=== PATIENT | female | born 1980 | race Caucasian/White ===

== ENCOUNTER 2021-11-10 20:58 | Emergency (ER) | payer SELFPAY ==
[~2021-11-10] VITALS: Ht 180 cm; Wt 73.0 kg
--- NOTE | 2021-11-10 21:21 | ED General ---
General Stated Complaint: BACK PAIN / VOMITING Source of Information: Patient Exam Limitations: No Limitations (DELTA MCGEE APRN) History of Present Illness Date Seen by Provider: Nov 10, 2021 Time Seen by Provider: 21:20 Initial Comments To ER by private vehicle from home with reports of severe low back pain, urinary frequency lower abdominal pain vomiting. She was seen by [facility] yesterday and diagnosed with urinary tract infection and given diclofenac and Macrobid. She has been vomiting. No fever no chills.She does report anxiety as well. Timing/Duration: 1-2 Days Severity: Moderate Associated Systoms: Nausea/Vomiting, Weakness (DELTA MCGEE APRN) Allergies and Home Medications Allergies Coded Allergies: morphine (Verified Allergy, Unknown, 11/10/21) Patient Home Medication List Home Medication List Reviewed: Yes (DELTA MCGEE APRN) Review of Systems Review of Systems Constitutional: see HPI EENTM: see HPI Respiratory: no symptoms reported Cardiovascular: no symptoms reported Genitourinary: no symptoms reported Musculoskeletal: no symptoms reported Skin: no symptoms reported Psychiatric/Neurological: No Symptoms Reported (DELTA MCGEE APRN) Physical Exam Vital Signs Vital Signs - First Documented 11/10/21 21:09 Temp 36.4 Pulse 87 Resp 20 B/P (MAP) 125/101 (109) Pulse Ox 100 O2 Delivery Room Air (YAMILE STACK DO) Vital Signs Capillary Refill : (DELTA MCGEE APRN) Height, Weight, BMI Height: '" Weight: lbs. oz. kg; BMI Method: General Appearance: No Apparent Distress, WD/WN, Anxious, Thin Eyes: Bilateral Eye Normal Inspection, Bilateral Eye PERRL, Bilateral Eye EOMI HEENT: PERRL/EOMI, TMs Normal Neck: Full Range of Motion, Normal Inspection Respiratory: No Accessory Muscle Use, No Respiratory Distress Cardiovascular: Normal Peripheral Pulses, Tachycardia Gastrointestinal: Normal Bowel Sounds, Non Tender, Soft, Other (abdomen is flat soft nontender. ) Neurologic/Psychiatric: Alert, Oriented x3 Skin: Normal Color, Warm/Dry (DELTA MCGEE APRN) Progress/Results/Core Measures Suspected Sepsis SIRS Temperature: Pulse: Respiratory Rate: Laboratory Tests 11/10/21 21:15: White Blood Count 10.9 Blood Pressure / Mean: Laboratory Tests 11/10/21 21:15: Creatinine 1.05, Platelet Count 287, Total Bilirubin 0.2 (DELTA MCGEE APRN) Results/Orders Lab Results Laboratory Tests Test 11/10/21 21:15 11/10/21 21:20 Range/Units White Blood Count 10.9 4.3-11.0 10^3/uL Red Blood Count 4.77 3.80-5.11 10^6/uL Hemoglobin 10.8 L 11.5-16.0 g/dL Hematocrit 38 35-52 % Mean Corpuscular Volume 79 L 80-99 fL Mean Corpuscular Hemoglobin 23 L 25-34 pg Mean Corpuscular Hemoglobin Concent 29 L 32-36 g/dL Red Cell Distribution Width 14.7 H 10.0-14.5 % Platelet Count 287 130-400 10^3/uL Mean Platelet Volume 9.3 9.0-12.2 fL Immature Granulocyte % (Auto) 1 % Neutrophils (%) (Auto) 89 H 42-75 % Lymphocytes (%) (Auto) 5 L 12-44 % Monocytes (%) (Auto) 5 0-12 % Eosinophils (%) (Auto) 1 0-10 % Basophils (%) (Auto) 0 0-10 % Neutrophils # (Auto) 9.7 H 1.8-7.8 10^3/uL Lymphocytes # (Auto) 0.5 L 1.0-4.0 10^3/uL Monocytes # (Auto) 0.5 0.0-1.0 10^3/uL Eosinophils # (Auto) 0.1 0.0-0.3 10^3/uL Basophils # (Auto) 0.0 0.0-0.1 10^3/uL Immature Granulocyte # (Auto) 0.1 0.0-0.1 10^3/uL Neutrophils % (Manual) 84 % Lymphocytes % (Manual) 2 % Monocytes % (Manual) 1 % Basophils % (Manual) 1 % Band Neutrophils 12 % Hypochromasia SLIGHT Poikilocytosis SLIGHT Anisocytosis SLIGHT Microcytosis SLIGHT Elliptocytes SLIGHT Schistocytes SLIGHT Sodium Level 138 135-145 MMOL/L Potassium Level 5.1 H 3.6-5.0 MMOL/L Chloride Level 105 98-107 MMOL/L Carbon Dioxide Level 19 L 21-32 MMOL/L Anion Gap 14 5-14 MMOL/L Blood Urea Nitrogen 19 H 7-18 MG/DL Creatinine 1.05 0.60-1.30 MG/DL Estimat Glomerular Filtration Rate 69 BUN/Creatinine Ratio 18 Glucose Level 130 H 70-105 MG/DL Calcium Level 8.3 L 8.5-10.1 MG/DL Corrected Calcium 8.6 8.5-10.1 MG/DL Total Bilirubin 0.2 0.1-1.0 MG/DL Aspartate Amino Transf (AST/SGOT) 19 5-34 U/L Alanine Aminotransferase (ALT/SGPT) 22 0-55 U/L Alkaline Phosphatase 72 40-136 U/L Total Protein 7.1 6.4-8.2 GM/DL Albumin 3.6 3.2-4.5 GM/DL Serum Test, Qualitative NEGATIVE NEGATIVE Urine Color YELLOW Urine Clarity CLEAR Urine pH 7.0 5-9 Urine Specific [place] 1.015 L 1.016-1.022 Urine Protein NEGATIVE NEGATIVE Urine Glucose (UA) NEGATIVE NEGATIVE Urine Ketones TRACE H NEGATIVE Urine Nitrite NEGATIVE NEGATIVE Urine Bilirubin 1+ H NEGATIVE Urine Urobilinogen 1.0 < = 1.0 MG/DL Urine Leukocyte Esterase NEGATIVE NEGATIVE Urine RBC (Auto) NEGATIVE NEGATIVE Urine RBC NONE /HPF Urine WBC NONE /HPF Urine Squamous Epithelial Cells 25-50 H /HPF Urine Crystals NONE /LPF Urine Bacteria FEW H /HPF Urine Casts NONE /LPF Urine Mucus NEGATIVE /LPF Urine Culture Indicated NO Urine Opiates Screen NEGATIVE NEGATIVE Urine Oxycodone Screen NEGATIVE NEGATIVE Urine Methadone Screen NEGATIVE NEGATIVE Urine Propoxyphene Screen NEGATIVE NEGATIVE Urine Barbiturates Screen NEGATIVE NEGATIVE Ur Tricyclic Antidepressants Screen NEGATIVE NEGATIVE Urine Phencyclidine Screen NEGATIVE NEGATIVE Urine Amphetamines Screen POSITIVE H NEGATIVE Urine Methamphetamines Screen POSITIVE H NEGATIVE Urine Benzodiazepines Screen NEGATIVE NEGATIVE Urine Cocaine Screen NEGATIVE NEGATIVE Urine Cannabinoids Screen NEGATIVE NEGATIVE (YAMILE STACK DO) Medications Given in ED Current Medications Medications Dose Ordered Sig/George Route Start Time Stop Time Status Last Admin Dose Admin Ketorolac Tromethamine 15 mg ONCE ONCE IVP 11/10/21 21:30 11/10/21 21:31 DC 11/10/21 21:27 15 MG Lorazepam 1 mg ONCE ONCE IVP 11/10/21 22:00 11/10/21 22:01 DC 11/10/21 22:05 1 MG Ondansetron HCl 8 mg ONCE ONCE IVP 11/10/21 21:30 1/23/22 21:31 DC 11/10/21 21:26 8 MG (YAMILE STACK DO) Vital Signs/I&O 11/10/21 11/10/21 21:09 22:29 Temp 36.4 Pulse 87 82 Resp 20 16 B/P (MAP) 125/101 (109) 116/80 Pulse Ox 100 100 O2 Delivery Room Air Room Air (YAMILE STACK DO) Vital Signs/I&O Capillary Refill : (DELTA MCGEE APRN) Departure Impression Primary Impression: Acute low back pain Additional Impression: Anxiety Disposition: 01 HOME, SELF-CARE Condition: Stable Departure-Patient Inst. Decision time for Depature: 21:53 (DELTA MCGEE APRN) Referrals: NO,LOCAL PHYSICIAN (PCP/Family) Primary Care Physician Patient Instructions: Low Back Pain ED ATTENDING PHYSICIAN NOTE: I WAS PHYSICALLY PRESENT ER PHYSICIAN WHEN THIS PATIENT WAS IN ER, BUT I WAS NOT INVOLVED IN ANY DECISION MAKING OR ANY CARE OF THIS PATIENT. (YAMILE STACK DO) DELTA MCGEE APRN Nov 10, 2021 21:21 YAMILE STACK DO Nov 11, 2021 05:22
[2021-11-10 21:27] LABS: BASOPHILS % (AUTO) 0 % (0-10); EOSINOPHILS # (AUTO) 0.1 10^3/uL (0.0-0.3); EOSINOPHILS % (AUTO) 1 % (0-10); HEMATOCRIT 38 % (35-52); HEMOGLOBIN 10.8 g/dL (11.5-16.0); LYMPHOCYTES # (AUTO) 0.5 10^3/uL (1.0-4.0); LYMPHOCYTES % (AUTO) 5 % (12-44); MEAN CORPUSCULAR HEMOGLOBIN 23 pg (25-34); MEAN CORPUSCULAR HGB CONC 29 g/dL (32-36); MEAN CORPUSCULAR VOLUME 79 fL (80-99); MEAN PLATELET VOLUME 9.3 fL (9.0-12.2); MONOCYTES # (AUTO) 0.5 10^3/uL (0.0-1.0); MONOCYTES % (AUTO) 5 % (0-12); NEUTROPHILS # (AUTO) 9.7 10^3/uL (1.8-7.8); NEUTROPHILS % (AUTO) 89 % (42-75); PLATELET COUNT 287 10^3/uL (130-400); WHITE BLOOD COUNT 10.9 10^3/uL (4.3-11.0)
[2021-11-10 21:28] LABS: CLARITY,URINE CLEAR; COLOR,URINE YELLOW; GLUCOSE, URINE (UA) NEGATIVE (NEGATIVE); KETONES,URINE TRACE (NEGATIVE); LEUKOCYTE ESTERASE ,URINE NEGATIVE (NEGATIVE); NITRITE,URINE NEGATIVE (NEGATIVE); PROTEIN,URINE NEGATIVE (NEGATIVE)
[2021-11-10] MEDS ORDERED: ONDANSETRON 4 MG/2 ML (SDV) Z0FRAN IVP ONE (21:30)
[2021-11-10] MEDS ORDERED: LACTATED RINGERS 1,000 ML IV SCH (21:30)
[2021-11-10] MEDS ORDERED: KETOROLAC 30 MG/ML VIAL IVP ONE (21:30)
[2021-11-10 21:41] LABS: AMPHETAMINE SCREEN, URINE POSITIVE (NEGATIVE); BENZODIAZEPINES SCREEN URINE NEGATIVE (NEGATIVE); CANNABINOID SCREEN, URINE NEGATIVE (NEGATIVE); COCAINE SCREEN URINE NEGATIVE (NEGATIVE); METHAMPHETAMINE SCREEN URINE S POSITIVE (NEGATIVE); OPIATE SCREEN URINE NEGATIVE (NEGATIVE)
[2021-11-10 21:42] LABS: ALBUMIN 3.6 GM/DL (3.2-4.5); POTASSIUM 5.1 MMOL/L (3.6-5.0)
[2021-11-10 21:42] LABS: BARBITURATE SCREEN URINE NEGATIVE (NEGATIVE); METHADONE STAT NEGATIVE (NEGATIVE); OXYCODONE STAT NEGATIVE (NEGATIVE); PROPOXYPHENE STAT NEGATIVE (NEGATIVE); TRICYCLIC ANTIDEPRESSANTS SCRE NEGATIVE (NEGATIVE)
[2021-11-10 21:43] LABS: CALCIUM 8.3 MG/DL (8.5-10.1)
[2021-11-10 21:44] LABS: TOTAL PROTEIN 7.1 GM/DL (6.4-8.2)
[2021-11-10 21:46] LABS: BILIRUBIN,TOTAL 0.2 MG/DL (0.1-1.0)
[2021-11-10 21:46] LABS: BACTERIA,URINE FEW /HPF; BILIRUBIN,URINE 1+ (NEGATIVE); SQUAMOUS EPITHELIAL CELL,UR 25-50 /HPF
[2021-11-10 21:48] LABS: CREATININE SERUM 1.05 MG/DL (0.60-1.30)
[2021-11-10 21:58] LABS: ANISOCYTOSIS SLIGHT; BAND NEUTROPHILS 12 %; BASOPHILS % (MANUAL) 1 %; HYPOCHROMASIA SLIGHT; LYMPHOCYTES % (MANUAL) 2 %; MICROCYTOSIS SLIGHT; MONOCYTES % (MANUAL) 1 %; NEUTROPHILS % (MANUAL) 84 %; POIKILOCYTOSIS SLIGHT
[2021-11-10 21:59] LABS: ELLIPT/OVALOCYTES SLIGHT; SCHISTOCYTES SLIGHT
[2021-11-10] MEDS ORDERED: LORazepam INJ 2 MG/ML (ATIVAN) VIAL IVP ONE (22:00)
[2021-11-10 22:29] VITALS: BP 116/80
== END 2021-11-10 22:29 | disposition home or self-care (01) ==
LOC: EDUNIT# 20:58 → ER 20:59
DX: M54.50 Low back pain, unspecified (principal); F41.9 Anxiety disorder, unspecified
CPT/HCPCS: 36415; 80053; 80306; 81000; 84703; 85007; 85027

== ENCOUNTER 2022-05-25 12:17 | Emergency (ER) | payer SELFPAY ==
[~2022-05-25] VITALS: Ht 180 cm; Wt 70.3 kg
--- NOTE | 2022-05-25 12:41 | ED General ---
General Chief Complaint: Bite-Animal/Human/Insect Stated Complaint: INSECT BITE Nursing Triage Note: PT PRESENTS TO ED VIA EMS FROM HOME WITH COMPLAINTS OF WASP STING TO R THIGH AND R ARM APROX 30 MIN AGO. PT REPORTS SHE USUALLY REQUIRES AN EPI PEN AFTER THESE STINGS BUT COULDNT FIND HERS SO SHE CALLED EMS. EMS REPORTS GIVING .5 MG EPI IM AFTER PT STARTED COMPLAING IF DIZZINESS. Source of Information: Patient Exam Limitations: No Limitations History of Present Illness Date Seen by Provider: May 25, 2022 Time Seen by Provider: 12:38 Initial Comments Patient is a 42-year-old female who presents ED for a wasp sting of her right thigh. This occurred about 30 minutes ago. She also states she was stung on her right arm but there is no evidence of a sting. She states she usually requires EpiPen after a wasp thing. She states that she was opening a bookcase that was outside for free books when she got stung. EMS was contacted and immediately gave epinephrine. She states she had some dizziness and shortness of breath. That has improved. She states she has used epinephrine in the past secondary to ostium. Denies visual changes, vomiting, diarrhea fever, chills. Allergies and Home Medications Allergies Coded Allergies: morphine (Verified Allergy, Unknown, 11/10/21) Patient Home Medication List Home Medication List Reviewed: Yes Review of Systems Review of Systems Constitutional: No chills, No diaphoresis, No malaise, No weakness EENTM: No ear pain, No blurred vision Respiratory: No cough, No dyspnea on exertion Cardiovascular: No chest pain Gastrointestinal: No abdominal pain, No diarrhea, No vomiting Genitourinary: No decreased output, No discharge Musculoskeletal: No back pain, No joint pain Skin: change in color Psychiatric/Neurological: Denies Anxiety, Denies Depressed All Other Systems Reviewed Negative Unless Noted: Yes Past [id number]-[id number]-[id number] Hx Patient Social History Tobacco Use?: Yes Tobacco type used: Cigarettes Smoking Status: Current Everyday Smoker Substance use?: No Alcohol Use?: No Pt feels they are or have been: No Immunizations Up To Date First/Initial COVID19 Vaccinat: N/A Second COVID19 Vaccination Emmanuel: N/A Third COVID19 Vaccination Date: N/A Past Medical History Surgery/Hospitalization HX: gallbaldder rmoval, teeth removed, asthma, HTN, depression, anxiety, Bipolar, Physical Exam Vital Signs Vital Signs - First Documented 05/25/22 12:26 Temp 36.8 Pulse 89 Resp 16 B/P (MAP) 117/63 (81) Pulse Ox 97 Capillary Refill : Less Than 3 Seconds Height, Weight, BMI Height: '" Weight: lbs. oz. kg; 21.00 BMI Method: General Appearance: No Apparent Distress, WD/WN Eyes: Bilateral Eye Normal Inspection, Bilateral Eye PERRL, Bilateral Eye EOMI HEENT: PERRL/EOMI, TMs Normal, Normal ENT Inspection, Pharynx Normal Neck: Full Range of Motion, Normal Inspection, Non Tender, Supple Respiratory: Chest Non Tender, Lungs Clear, Normal Breath Sounds, No Accessory Muscle Use, No Respiratory Distress Cardiovascular: Regular Rate, Rhythm, No Edema, No Gallop Gastrointestinal: Normal Bowel Sounds, No Organomegaly, No Pulsatile Mass, Non Tender Extremity: Normal Capillary Refill, Normal Inspection, Normal Range of Motion, Non Tender Neurologic/Psychiatric: Alert, Oriented x3, No Motor/Sensory Deficits, Normal Mood/Affect, sap hana architect II-XII Norm as Tested Skin: Other (Small superficial bite to the right thigh) Progress/Results/Core Measures Suspected Sepsis SIRS Temperature: Pulse: 89 Respiratory Rate: 16 Blood Pressure 117 /63 Mean: 81 Results/Orders My Orders Orders - ASAF NUNEZ Diphenhydramine Injection (Benadryl Inje (05/25/22 12:45) Famotidine Tablet (Pepcid Tablet) (05/25/22 12:45) Medications Given in ED Current Medications Medications Dose Ordered Sig/George Route Start Time Stop Time Status Last Admin Dose Admin Diphenhydramine HCl 25 mg ONCE ONCE IVP 05/25/22 12:45 05/25/22 12:46 DC 05/25/22 12:50 25 MG Famotidine 20 mg ONCE ONCE PO 05/25/22 12:45 05/25/22 12:46 DC 05/25/22 12:50 20 MG Vital Signs/I&O 05/25/22 05/25/22 12:26 13:58 Temp 36.8 36.8 Pulse 89 74 Resp 16 16 B/P (MAP) 117/63 (81) 109/71 Pulse Ox 97 99 Capillary Refill : Less Than 3 Seconds Blood Pressure Mean: 81 Departure Communication (PCP) Patient does not appear to be having anaphylaxis at this time. Was given epinephrine IM 0.5. Small bite to the right inner thigh. Was given dose of Benadryl, Pepcid and Solu-Medrol. Patient is currently homeless. She states that she feels much better at this time. Due to complete resolution of her symptoms discharge with Benadryl. She states she has an EpiPen in her bag. Any worsening symptoms return back to ED for further evaluation Impression Primary Impression: Insect bites Disposition: 01 HOME, SELF-CARE Condition: Stable Departure-Patient Inst. Decision time for Depature: 13:40 Referrals: [facility] (PCP/Family) Primary Care Physician Patient Instructions: Insect Bites and Stings (DC) Add. Discharge Instructions: Recommend continue taking Benadryl 25 mg every 6-8 hours. If any worsening symptoms return back to ED All discharge instructions reviewed with patient and/or family. Voiced understanding. ASAF NUNEZ May 25, 2022 12:40
[2022-05-25] MEDS ORDERED: FAMOTIDINE 20 MG (PEPCID) TABLET PO ONE (12:45)
[2022-05-25] MEDS ORDERED: diphenhydrAMINE 50 MG/ML INJ (BENADRYL) IVP ONE (12:45)
[2022-05-25 13:58] VITALS: BP 109/71
== END 2022-05-25 13:58 | disposition home or self-care (01) ==
LOC: EDUNIT# 12:17 → ER 12:18
DX: S70.361A Insect bite (nonvenomous), right thigh, initial encounter (principal); F17.210 Nicotine dependence, cigarettes, uncomplicated; Z28.310 Unvaccinated for COVID-19; W57.XXXA Bitten or stung by nonvenomous insect and other nonvenomous arthropods, initial encounter
CPT/HCPCS: 99283